=== PATIENT | female | born 1985 | race Caucasian/White ===

== ENCOUNTER 2017-07-15 17:09 | Emergency (ER) | payer SELFPAY ==
[2017-07-15 18:56] LABS: Basophils % (Auto) 0.6 % (0.0-1.8); Eosinophils % (Auto) 0.9 % (0.0-4.3); Hematocrit 40.2 % (30.3-42.9); Hemoglobin 13.7 gm/dl (10.1-14.3); Mean Corpuscular HGB Conc 34 % (30-34); Mean Corpuscular Hemoglobin 31 pg (28-32); Mean Corpuscular Volume 92 fl (79-97); Platelet Count 179 K/mm3 (140-440); Red Blood Count 4.38 M/mm3 (3.65-5.03); Red Cell Distribution Width 13.8 % (13.2-15.2); White Blood Count 7.6 K/mm3 (4.5-11.0)
[2017-07-15 19:04] LABS: Bilirubin,Urine NEG (Negative); Blood,Urine NEG (Negative); Ketones,Urine NEG (Negative); Leukocyte Esterase,Urine TR (Negative); Mucus,Urine FEW /HPF; Nitrite,Urine NEG (Negative); Protein,Urine <15 mg/dL mg/dL (Negative); Urobilinogen,Urine < 2.0 mg/dL (<2.0)
[2017-07-15 19:28] LABS: Alanine Aminotransferase 12 units/L (7-56); Albumin 4.1 g/dL (3.9-5); Albumin/Globulin Ratio 1.6 %; Alkaline Phosphatase 60 units/L (35-129); Anion Gap 18 mmol/L; BUN/Creatinine Ratio 13.33; Blood Urea Nitrogen 8 mg/dL (7-17); Calcium 9.5 mg/dL (8.4-10.2); Carbon Dioxide 24 mmol/L (22-30); Chloride 102.4 mmol/L (98-107); Glucose 77 mg/dL (65-100); Lipase 45 units/L (13-60); Potassium 3.9 mmol/L (3.6-5.0); Sodium 140 mmol/L (137-145); Total Protein 6.7 g/dL (6.3-8.2)
--- NOTE | 2017-07-16 01:30 | Emergency Department Report ---
ED Abdominal Pain HPI - General Chief Complaint: Abdominal Pain Stated Complaint: PREG WKS ?/PAIN Time Seen by Provider: 07/16/17 01:21 Source: patient Mode of arrival: Ambulatory Limitations: No Limitations - History of Present Illness Initial Comments: 32 years old female presented today with lower abdominal pain as being on for a few days patient thing that she is she stated that she did have a home test that was positive. She is 7 para 4. Denied any nausea or vomiting or urinary symptoms no fever. Patient stated her pain is resolved now MD Complaint: abdominal pain -: Gradual Location: suprapubic Radiation: none Migration to: no migration - Related Data Previous Rx's Medication Instructions Recorded Last Taken Type Hyoscyamine Subl [Levsin Sl 0.125 0.125 mg PO Q6H PRN #20 tablet 11/18/13 Unknown Rx TAB] Ranitidine HCl [Ranitidine 150mg 150 mg PO Q12H #30 capsule 11/18/13 Unknown Rx Cap] Ciprofloxacin HCl [Cipro] 500 mg PO Q12H #14 tab 01/03/15 Unknown Rx HYDROcodone/APAP 5-325 [[place] 1 each PO Q6HR PRN #8 tablet 01/03/15 Unknown Rx 5-325 mg TAB] Ondansetron [Zofran Odt] 4 mg PO Q6H PRN #8 tab.rapdis 01/03/15 Unknown Rx Promethazine Dm [Phenergan Dm 5 ml PO Q6H PRN #120 ml 01/03/15 Unknown Rx 6.25/15 mg 5 ml] Fluticasone [Flonase] 1 spray NS QDAY #1 bottle 11/22/15 Unknown Rx Ibuprofen [Motrin] 800 mg PO Q8HR PRN #15 tablet 11/22/15 Unknown Rx predniSONE [Deltasone] 20 mg PO QDAY #5 tab 11/22/15 Unknown Rx Ondansetron [Zofran Odt] 4 mg PO Q8HR PRN #20 tab.rapdis 07/16/17 Unknown Rx Allergies Allergy/AdvReac Type Severity Reaction Status Date / Time No Known Allergies Allergy Verified 03/02/14 10:28 ED Review of Systems ROS: Stated complaint: PREG WKS ?/PAIN Other details as noted in HPI Comment: All other systems reviewed and negative Constitutional: denies: chills, fever Respiratory: denies: cough, shortness of breath Cardiovascular: denies: chest pain Gastrointestinal: abdominal pain. denies: nausea, vomiting, diarrhea, hematemesis Genitourinary: denies: dysuria, frequency, hematuria, discharge Skin: denies: change in color Neurological: denies: headache, weakness, numbness ED Past Medical Hx - Past Medical History Previous Medical History?: Yes Hx Hypertension: Yes (PIH) Additional medical history: gallstone - Surgical History Past Surgical History?: Yes Hx Cholecystectomy: Yes - Social History Smoking Status: Never Smoker Substance Use Type: None - Medications Home Medications: Home Medications Medication Instructions Recorded Confirmed Last Taken Type Hyoscyamine Subl [Levsin Sl 0.125 0.125 mg PO Q6H PRN #20 tablet 11/18/13 Unknown Rx TAB] Ranitidine HCl [Ranitidine 150mg 150 mg PO Q12H #30 capsule 11/18/13 Unknown Rx Cap] Ciprofloxacin HCl [Cipro] 500 mg PO Q12H #14 tab 01/03/15 Unknown Rx HYDROcodone/APAP 5-325 [[place] 1 each PO Q6HR PRN #8 tablet 01/03/15 Unknown Rx 5-325 mg TAB] Ondansetron [Zofran Odt] 4 mg PO Q6H PRN #8 tab.rapdis 01/03/15 Unknown Rx Promethazine Dm [Phenergan Dm 5 ml PO Q6H PRN #120 ml 01/03/15 Unknown Rx 6.25/15 mg 5 ml] Fluticasone [Flonase] 1 spray NS QDAY #1 bottle 11/22/15 Unknown Rx Ibuprofen [Motrin] 800 mg PO Q8HR PRN #15 tablet 11/22/15 Unknown Rx predniSONE [Deltasone] 20 mg PO QDAY #5 tab 11/22/15 Unknown Rx Ondansetron [Zofran Odt] 4 mg PO Q8HR PRN #20 tab.rapdis 07/16/17 Unknown Rx ED Physical Exam - General Limitations: No Limitations General appearance: alert - Head Head exam: Present: normocephalic - Eye Eye exam: Present: normal appearance Pupils: Present: normal accommodation - ENT ENT exam: Present: normal exam - Respiratory Respiratory exam: Present: normal lung sounds bilaterally. Absent: wheezes, rales, rhonchi - Cardiovascular Cardiovascular Exam: Present: regular rate, normal rhythm, normal heart sounds - GI/Abdominal GI/Abdominal exam: Present: soft, normal bowel sounds. Absent: distended, tenderness, guarding, rebound, rigid, diminished bowel sounds, hyperactive bowel sounds, hypoactive bowel sounds, organomegaly, mass, bruit, pulsatile mass , hernia - Back Exam Back exam: Present: normal inspection. Absent: CVA tenderness (R), CVA tenderness (L) - Neurological Exam Neurological exam: Present: alert, oriented X3, CN II-XII intact - Skin Skin exam: Present: warm, normal color ED Course Vital Signs 07/15/17 07/16/17 18:23 00:33 Temperature 97.5 F L Pulse Rate 77 73 Respiratory 18 16 Rate Blood Pressure 150/95 Blood Pressure 126/74 [Left] O2 Sat by Pulse 99 100 Oximetry ED Medical Decision Making - Lab Data Result diagrams: 07/15/17 18:29 07/15/17 18:29 Critical care attestation.: If time is entered above; I have spent that time in minutes in the direct care of this critically ill patient, excluding procedure time. ED Disposition Clinical Impression: Abdominal pain, Abdominal pain affecting Disposition: DC-01 TO HOME OR SELFCARE Is pt being admited?: No Condition: Stable Instructions: (ED), Abdominal Pain (ED) Prescriptions: Ondansetron [Zofran Odt] 4 mg PO Q8HR PRN #20 tab.rapdis PRN Reason: Nausea And Vomiting Referrals: PRIMARY CARE,MD [Primary Care Provider] - 3-5 Days
[2017-07-16] MEDS ORDERED: ZOFRAN ODT PO ONE (04:00)
[2017-07-16] MEDS ORDERED: ZOFRAN PO ONE (04:00)
[2017-07-16] MEDS ORDERED: ZOFRAN ODT ONE (04:07)
--- NOTE | 2017-07-16 05:47 | Ultrasound Report ---
FINAL REPORT EXAM: US OB \T\lt; = 14 WEEKS FETUS HISTORY: Pelvic pain. patient. TECHNIQUE: Directed transabdominal ultrasound examination of the pelvis was performed. No prior studies are available for comparison. FINDINGS: Note that the patient refused transvaginal imaging. The patient reports her last menstrual period 06/05/2017, corresponding to current gestational age of 5 weeks, 6 days. The uterus is anteverted, and measures 6.9 x 6.6 x 9.5 cm. There is a single intrauterine gestation, with visualization of the gestational sac, yolk sac, and pole. The crown-rump length measures 5.4 mm, corresponding to gestational age of 6 weeks, 2 days. cardiac activity is identified, with a heart rate of 122 beats per minute. The right ovary measures 2.9 x 2.8 x 3.8 cm, and contains a 2.2 cm rounded hypoechoic lesion, which demonstrates central 0.8 cm cystic component. This is nonspecific but probably represents corpus luteum. The left ovary measures 3.3 x 2.0 x 3.1 cm, and contains a 1.6 cm cyst. No other adnexal mass is seen. There is no significant pelvic free fluid. IMPRESSION: 1. Single live intrauterine , with gestational age of 6 weeks, 2 days, as estimated by crown-rump length. 2. 2.2 cm probable corpus luteum in the right ovary.
[2017-07-16 07:21] VITALS: BP 116/78
== END 2017-07-16 06:05 | disposition home or self-care (01) ==
LOC: ED 17:09
DX: O26.899 Other specified pregnancy related conditions, unspecified trimester (principal); R10.30 Lower abdominal pain, unspecified; I10 Essential (primary) hypertension; Z3A.00 Weeks of gestation of pregnancy not specified
CPT/HCPCS: 36415; 76801; 80053; 81001; 81025; 83690; 84702; 85025; 99284; Q0162

== ENCOUNTER 2017-09-05 06:51 | Emergency (ER) | payer MEDICAID, OTHER ==
[2017-09-05 09:18] LABS: Basophils % (Auto) 0.8 % (0.0-1.8); Eosinophils % (Auto) 1.3 % (0.0-4.3); Hematocrit 37.5 % (30.3-42.9); Hemoglobin 12.4 gm/dl (10.1-14.3); Mean Corpuscular HGB Conc 33 % (30-34); Mean Corpuscular Hemoglobin 31 pg (28-32); Mean Corpuscular Volume 92 fl (79-97); Platelet Count 211 K/mm3 (140-440); Red Blood Count 4.07 M/mm3 (3.65-5.03); Red Cell Distribution Width 13.2 % (13.2-15.2); White Blood Count 6.6 K/mm3 (4.5-11.0)
[2017-09-05 09:21] LABS: Anion Gap 14 mmol/L; BUN/Creatinine Ratio 18; Blood Urea Nitrogen 9 mg/dL (7-17); Calcium 8.8 mg/dL (8.4-10.2); Carbon Dioxide 28 mmol/L (22-30); Chloride 100.4 mmol/L (98-107); Glucose 108 mg/dL (65-100); Potassium 3.6 mmol/L (3.6-5.0); Sodium 139 mmol/L (137-145)
[2017-09-05 09:50] LABS: Urine Drugs of Abuse Note Disclamer
[2017-09-05 10:02] LABS: Bacteria,Urine 2+ /HPF (Negative); Bilirubin,Urine NEG (Negative); Blood,Urine SM (Negative); Ketones,Urine 20 mg/dL (Negative); Leukocyte Esterase,Urine TR (Negative); Mucus,Urine 3+ /HPF; Nitrite,Urine NEG (Negative); Urobilinogen,Urine < 2.0 mg/dL (<2.0)
[2017-09-06] MEDS ORDERED: RisperDAL PO ONE (01:55)
--- NOTE | 2017-09-06 05:22 | Emergency Department Report ---
ED General Adult HPI - General Chief complaint: Psych Stated complaint: MEDICAL CLEAR. Time Seen by Provider: 09/06/17 01:18 Source: patient, police Mode of arrival: Ambulatory Limitations: No Limitations - History of Present Illness Initial comments: Patient is a 32-year-old female past medical history of schizophrenia who presents with hearing voices. Patient states that she hasn't been able to get her medications for her schizophrenia. Patient states that her voices are getting worse and they're making her incredibly anxious. Patient denies having any suicidal or homicidal ideation. Not taking her medications make the voices worse and taking her medication makes it at her. Patient denies being any pain. Patient takes multiple recreational drugs. Severity scale (0 -10): 0 - Related Data Previous Rx's Medication Instructions Recorded Last Taken Type Hyoscyamine Subl [Levsin Sl 0.125 0.125 mg PO Q6H PRN #20 tablet 11/18/13 Unknown Rx TAB] Ranitidine HCl [Ranitidine 150mg 150 mg PO Q12H #30 capsule 11/18/13 Unknown Rx Cap] Ciprofloxacin HCl [Cipro] 500 mg PO Q12H #14 tab 01/03/15 Unknown Rx HYDROcodone/APAP 5-325 [[place] 1 each PO Q6HR PRN #8 tablet 01/03/15 Unknown Rx 5-325 mg TAB] Ondansetron [Zofran Odt] 4 mg PO Q6H PRN #8 tab.rapdis 01/03/15 Unknown Rx Promethazine Dm [Phenergan Dm 5 ml PO Q6H PRN #120 ml 01/03/15 Unknown Rx 6.25/15 mg 5 ml] Fluticasone [Flonase] 1 spray NS QDAY #1 bottle 11/22/15 Unknown Rx Ibuprofen [Motrin] 800 mg PO Q8HR PRN #15 tablet 11/22/15 Unknown Rx predniSONE [Deltasone] 20 mg PO QDAY #5 tab 11/22/15 Unknown Rx Ondansetron [Zofran Odt] 4 mg PO Q8HR PRN #20 tab.rapdis 07/16/17 Unknown Rx Allergies Allergy/AdvReac Type Severity Reaction Status Date / Time No Known Allergies Allergy Verified 03/02/14 10:28 ED Review of Systems ROS: Stated complaint: MEDICAL CLEAR. Other details as noted in HPI Constitutional: denies: chills, fever Eyes: denies: eye pain, eye discharge, vision change ENT: denies: ear pain, throat pain Respiratory: denies: cough, shortness of breath, wheezing Cardiovascular: denies: chest pain, palpitations Endocrine: no symptoms reported Gastrointestinal: denies: abdominal pain, nausea, diarrhea Genitourinary: denies: urgency, dysuria, discharge Musculoskeletal: denies: back pain, joint swelling, arthralgia Skin: denies: rash, lesions Neurological: denies: headache, weakness, paresthesias Psychiatric: as per HPI, anxiety, auditory hallucinations. denies: depression Hematological/Lymphatic: denies: easy bleeding, easy bruising ED Past Medical Hx - Past Medical History Previous Medical History?: Yes Hx Hypertension: Yes (PIH) Additional medical history: gallstone - Surgical History Past Surgical History?: Yes Hx Cholecystectomy: Yes - Social History Smoking Status: Current Every Day Smoker Substance Use Type: Alcohol, Cocaine, Heroin, Marijuana, Prescribed, Tranquilizers, Methamphetamines - Medications Home Medications: Home Medications Medication Instructions Recorded Confirmed Last Taken Type Hyoscyamine Subl [Levsin Sl 0.125 0.125 mg PO Q6H PRN #20 tablet 11/18/13 Unknown Rx TAB] Ranitidine HCl [Ranitidine 150mg 150 mg PO Q12H #30 capsule 11/18/13 Unknown Rx Cap] Ciprofloxacin HCl [Cipro] 500 mg PO Q12H #14 tab 01/03/15 Unknown Rx HYDROcodone/APAP 5-325 [[place] 1 each PO Q6HR PRN #8 tablet 01/03/15 Unknown Rx 5-325 mg TAB] Ondansetron [Zofran Odt] 4 mg PO Q6H PRN #8 tab.rapdis 01/03/15 Unknown Rx Promethazine Dm [Phenergan Dm 5 ml PO Q6H PRN #120 ml 01/03/15 Unknown Rx 6.25/15 mg 5 ml] Fluticasone [Flonase] 1 spray NS QDAY #1 bottle 11/22/15 Unknown Rx Ibuprofen [Motrin] 800 mg PO Q8HR PRN #15 tablet 11/22/15 Unknown Rx predniSONE [Deltasone] 20 mg PO QDAY #5 tab 11/22/15 Unknown Rx Ondansetron [Zofran Odt] 4 mg PO Q8HR PRN #20 tab.rapdis 07/16/17 Unknown Rx ED Physical Exam - General Limitations: No Limitations General appearance: alert, in no apparent distress - Head Head exam: Present: atraumatic, normocephalic - Eye Eye exam: Present: normal appearance - ENT ENT exam: Present: mucous membranes moist - Neck Neck exam: Present: normal inspection - Respiratory Respiratory exam: Present: normal lung sounds bilaterally. Absent: respiratory distress - Cardiovascular Cardiovascular Exam: Present: regular rate, normal rhythm. Absent: systolic murmur, diastolic murmur, rubs, gallop - GI/Abdominal GI/Abdominal exam: Present: soft, normal bowel sounds - Extremities Exam Extremities exam: Present: normal inspection - Back Exam Back exam: Present: normal inspection - Neurological Exam Neurological exam: Present: alert, oriented X3 - Psychiatric Psychiatric exam: Present: anxious, other (auditory hallucinations ) - Skin Skin exam: Present: warm, dry, intact, normal color. Absent: rash ED Course Vital Signs 09/05/17 09/05/17 09/05/17 08:41 10:59 18:21 Temperature 97.7 F 97.8 F 97.7 F Pulse Rate 83 71 80 Respiratory 18 18 18 Rate Blood Pressure 121/78 123/74 128/93 Blood Pressure [Left] O2 Sat by Pulse 100 100 100 Oximetry 09/05/17 20:00 Temperature 98 F Pulse Rate 79 Respiratory 18 Rate Blood Pressure Blood Pressure 120/80 [Left] O2 Sat by Pulse 100 Oximetry ED Medical Decision Making - Lab Data Result diagrams: 09/05/17 08:51 09/05/17 08:51 Lab Results 09/05/17 09/05/17 09/05/17 Range/Units 08:51 08:51 08:51 WBC 6.6 (4.5-11.0) K/mm3 RBC 4.07 (3.65-5.03) M/mm3 Hgb 12.4 (10.1-14.3) gm/dl Hct 37.5 (30.3-42.9) % MCV 92 (79-97) fl MCH 31 (28-32) pg MCHC 33 (30-34) % RDW 13.2 (13.2-15.2) % Plt Count 211 (140-440) K/mm3 Lymph % (Auto) 26.6 (13.4-35.0) % [place] % (Auto) 7.8 H (0.0-7.3) % Eos % (Auto) 1.3 (0.0-4.3) % Baso % (Auto) 0.8 (0.0-1.8) % Lymph # 1.7 (1.2-5.4) K/mm3 [place] # 0.5 (0.0-0.8) K/mm3 Eos # 0.1 (0.0-0.4) K/mm3 Baso # 0.1 (0.0-0.1) K/mm3 Seg Neutrophils % 63.5 (40.0-70.0) % Seg Neutrophils # 4.2 (1.8-7.7) K/mm3 Sodium 139 (137-145) mmol/L Potassium 3.6 (3.6-5.0) mmol/L Chloride 100.4 (98-107) mmol/L Carbon Dioxide 28 (22-30) mmol/L Anion Gap 14 mmol/L BUN 9 (7-17) mg/dL Creatinine 0.5 L (0.7-1.2) mg/dL Estimated GFR > 60 ml/min BUN/Creatinine Ratio 18 % Glucose 108 H (65-100) mg/dL Calcium 8.8 (8.4-10.2) mg/dL Urine Color (Yellow) Urine Turbidity (Clear) Urine pH (5.0-7.0) Ur Specific [place] (1.003-1.030) Urine Protein (Negative) mg/dL Urine Glucose (UA) (Negative) mg/dL Urine Ketones (Negative) mg/dL Urine Blood (Negative) Urine Nitrite (Negative) Urine Bilirubin (Negative) Urine Urobilinogen (<2.0) mg/dL Ur Leukocyte Esterase (Negative) Urine WBC (Auto) (0.0-6.0) /HPF Urine RBC (Auto) (0.0-6.0) /HPF U Epithel Cells (Auto) (0-13.0) /HPF Urine Bacteria (Auto) (Negative) /HPF Urine Mucus /HPF Urine HCG, Qual (Negative) Urine Opiates Screen Urine Methadone Screen Ur Barbiturates Screen Ur Phencyclidine Scrn Ur Amphetamines Screen U Benzodiazepines Scrn Urine Cocaine Screen U Marijuana (THC) Screen Drugs of Abuse Note Plasma/Serum Alcohol < 0.01 (0-0.07) gm% 09/05/17 09/05/17 Range/Units 09:30 09:30 WBC (4.5-11.0) K/mm3 RBC (3.65-5.03) M/mm3 Hgb (10.1-14.3) gm/dl Hct (30.3-42.9) % MCV (79-97) fl MCH (28-32) pg MCHC (30-34) % RDW (13.2-15.2) % Plt Count (140-440) K/mm3 Lymph % (Auto) (13.4-35.0) % [place] % (Auto) (0.0-7.3) % Eos % (Auto) (0.0-4.3) % Baso % (Auto) (0.0-1.8) % Lymph # (1.2-5.4) K/mm3 [place] # (0.0-0.8) K/mm3 Eos # (0.0-0.4) K/mm3 Baso # (0.0-0.1) K/mm3 Seg Neutrophils % (40.0-70.0) % Seg Neutrophils # (1.8-7.7) K/mm3 Sodium (137-145) mmol/L Potassium (3.6-5.0) mmol/L Chloride (98-107) mmol/L Carbon Dioxide (22-30) mmol/L Anion Gap mmol/L BUN (7-17) mg/dL Creatinine (0.7-1.2) mg/dL Estimated GFR ml/min BUN/Creatinine Ratio % Glucose (65-100) mg/dL Calcium (8.4-10.2) mg/dL Urine Color [place] (Yellow) Urine Turbidity Clear (Clear) Urine pH 5.0 (5.0-7.0) Ur Specific [place] 1.026 (1.003-1.030) Urine Protein 30 mg/dl (Negative) mg/dL Urine Glucose (UA) Neg (Negative) mg/dL Urine Ketones 20 (Negative) mg/dL Urine Blood Sm (Negative) Urine Nitrite Neg (Negative) Urine Bilirubin Neg (Negative) Urine Urobilinogen < 2.0 (<2.0) mg/dL Ur Leukocyte Esterase Tr (Negative) Urine WBC (Auto) 8.0 H (0.0-6.0) /HPF Urine RBC (Auto) 5.0 (0.0-6.0) /HPF U Epithel Cells (Auto) 2.0 (0-13.0) /HPF Urine Bacteria (Auto) 2+ (Negative) /HPF Urine Mucus 3+ /HPF Urine HCG, Qual Negative (Negative) Urine Opiates Screen Presumptive negative Urine Methadone Screen Presumptive negative Ur Barbiturates Screen Presumptive negative Ur Phencyclidine Scrn Presumptive negative Ur Amphetamines Screen Presumptive negative U Benzodiazepines Scrn Presumptive negative Urine Cocaine Screen Presumptive negative U Marijuana (THC) Screen Presumptive negative Drugs of Abuse Note Disclamer Plasma/Serum Alcohol (0-0.07) gm% - Medical Decision Making Chief medical diagnosis: Psychosis Differential medical diagnosis: Substance induced mood disorder, bipolar disorder, electrolyte abnormality CBC, CMP, urinalysis, urine drug screen, salicylate, acetaminophen level, mental health evaluation Due to patient having psychotic symptoms and hearing voices how all signed 1013 on patient and have patient be evaluated by psychiatrist tomorrow. Patient has been medically cleared Critical care attestation.: If time is entered above; I have spent that time in minutes in the direct care of this critically ill patient, excluding procedure time. ED Disposition Clinical Impression: Psychosis Qualifiers: Psychosis type: unspecified psychosis type Qualified Code(s): F29 - Unspecified psychosis not due to a substance or known physiological condition Disposition: DC/TX-65 PSY HOSP/PSY UNIT Is pt being admited?: No Does the pt Need Aspirin: No Condition: Stable Referrals: PRIMARY CARE, [Primary Care Provider] - 3-5 Days
--- NOTE | 2017-09-06 16:27 | Consultation ---
History of Present Illness - Reason for Consult Consult date: 09/06/17 Reason for consult: psychiatric evaluation - Chief Complaint Chief complaint: "I used and fell down the stairs." 32 year old female brought in by Police. Per report Pt was found in the corner of a grocery store behaving bizarrely. Pt has a history of Schizophrenia and admits noncompliance with prescribed Risperidone. She reports previously taking 3mg hs. She reported regular use of recreational drugs to attending MD but is negative for all drugs of abuse upon evaluation. She expresses bizarre and hyper jain delusions during assessment. She is tangential and has pressured speech. She told the [employer] foreman that she became sick and vomited "when I became born in [facility]". Unable to obtain additional information due to psychosis. Medications and Allergies Allergies Allergy/AdvReac Type Severity Reaction Status Date / Time No Known Allergies Allergy Verified 03/02/14 10:28 Home Medications Medication Instructions Recorded Confirmed Last Taken Type Hyoscyamine Subl [Levsin Sl 0.125 0.125 mg PO Q6H PRN #20 tablet 11/18/13 Unknown Rx TAB] Ranitidine HCl [Ranitidine 150mg 150 mg PO Q12H #30 capsule 11/18/13 Unknown Rx Cap] Ciprofloxacin HCl [Cipro] 500 mg PO Q12H #14 tab 01/03/15 Unknown Rx HYDROcodone/APAP 5-325 [[place] 1 each PO Q6HR PRN #8 tablet 01/03/15 Unknown Rx 5-325 mg TAB] Ondansetron [Zofran Odt] 4 mg PO Q6H PRN #8 tab.rapdis 01/03/15 Unknown Rx Promethazine Dm [Phenergan Dm 5 ml PO Q6H PRN #120 ml 01/03/15 Unknown Rx 6.25/15 mg 5 ml] Fluticasone [Flonase] 1 spray NS QDAY #1 bottle 11/22/15 Unknown Rx Ibuprofen [Motrin] 800 mg PO Q8HR PRN #15 tablet 11/22/15 Unknown Rx predniSONE [Deltasone] 20 mg PO QDAY #5 tab 11/22/15 Unknown Rx Ondansetron [Zofran Odt] 4 mg PO Q8HR PRN #20 tab.rapdis 07/16/17 Unknown Rx Past psychiatric history - Past Medical History Past Medical History: other (BELLO) - past Psychiatric treatment and history Psych: Schizophrenia - Social History Social history: other (BELLO) Mental Status Exam - Vital signs Last Vital Signs Temp 97.8 F 09/06/17 10:41 Pulse 82 09/06/17 10:41 Resp 20 09/06/17 10:41 BP 113/74 09/06/17 10:41 Pulse Ox 98 09/06/17 10:41 - Exam Orientation: place, person Affect: anxious Mood: congruent with affect Thought content: delusions, taoist, other (bizarre) Thought Process: Disorganized Perceptions: other (BELLO) Speech: pressured Concentration: distractible Motor activity: restless Level of consciousness: alert Interaction: cooperative (attempts to be but requires redirection, which was mostly unsuccessful) Results Result Diagrams: 09/05/17 08:51 09/05/17 08:51 All other labs normal. Assessment and Plan Assessment and plan: Impression: Psychosis no signs of withdrawal identified. reports of polysubstance use may be delusional schizophrenia by report Recommendation: 1013 and transfer to inpatient psychiatric facility for stabilization Start risperdal 2mg hs. She has not been on it in 7 months.
[2017-09-06] MEDS ORDERED: RisperDAL PO SCH (22:00)
[2017-09-07 01:13] VITALS: BP 102/82
== END 2017-09-07 01:06 ==
LOC: ED 06:51 → EEVIPCON 06:51 → ED 09-07 01:06
DX: F20.9 Schizophrenia, unspecified (principal); I10 Essential (primary) hypertension; F17.210 Nicotine dependence, cigarettes, uncomplicated; F14.10 Cocaine abuse, uncomplicated; F12.10 Cannabis abuse, uncomplicated; F11.10 Opioid abuse, uncomplicated; F15.10 Other stimulant abuse, uncomplicated
CPT/HCPCS: 36415; 80048; 80307; 81001; 81025; 85025; 99285; G0480; 80320

== ENCOUNTER 2020-01-11 09:32 | Emergency (ER) | payer MEDICARE ==
--- NOTE | 2020-01-11 10:07 | Emergency Department Report ---
ED Psych HPI - General Stated Complaint: AMS Time Seen by Provider: 01/11/20 09:51 Source: patient, EMS Mode of arrival: Ambulatory Limitations: No Limitations - History of Present Illness Initial Comments: CC: "I just needed to rest." HPI: Mrs. Whitt is a 34 yo female with hx of schizoaffective disorder who was brought per EMS for altered mental status from a local [facility]. A third democrat called EMS for medical assistance. Patient appeared altered. She did not know the year. She informed treatment nurse that she is hearing voices. She is currently homeless. She has an empty bottle of Depakote in her purse. She does not know the reason why she was prescribed this medication. She has stopped taking this medication because a physician told her not to take the medication any longer. Denies pain. Received naloxone per EMS. Denies drug use. She says that she has two sisters. Diagnosed with schizoaffective disorder age 12. Mrs. Whitt Moved to [place] 6 years ago. Had recently lived at personal long term for the past 8 months but evicted because she has not been taking her medications. According to sisters, she has been erratic and disoriented. She does not seem safe to be on the streets. She has been aggressive. She does attend to her personal hygiene. She receives disability checks. Sisters unable to continue provide Mrs. Whitt detention due to concern for their personal safety. Sisters Silvia Marla According to the psychiatric consultation performed here in 2017, patient had previously taken the medication Risperdal. Complaint: other ("Hearing voices") -: unknown Associated Psychiatric Symptoms: auditory hallucinations History of same: Yes Quality: constant Improves With: none Worsens With: none Context: not taking psychiatric Associated Symptoms: denies other symptoms Treatments Prior to Arrival: other (Naloxone per EMS) - Related Data Home Medications Medication Instructions Recorded Confirmed Last Taken Divalproex [DepaKOTE ] 1,000 mg PO QID 01/11/20 01/11/20 Unknown Previous Rx's Medication Instructions Recorded Last Taken Type raNITIdine HCL [Ranitidine 150mg 150 mg PO Q12H #30 capsule 11/18/13 Unknown Rx Cap] Ibuprofen [Motrin] 800 mg PO Q8HR PRN #15 tablet 11/22/15 Unknown Rx Allergies Allergy/AdvReac Type Severity Reaction Status Date / Time No Known Allergies Allergy Verified 03/02/14 10:28 ED Review of Systems ROS: Stated complaint: AMS Other details as noted in HPI Comment: All other systems reviewed and negative Constitutional: denies: fever, malaise Respiratory: denies: cough Cardiovascular: denies: chest pain Psychiatric: suicidal thoughts ED Past Medical Hx - Past Medical History Previous Medical History?: Yes Hx Hypertension: Yes (PIH) Additional medical history: gallstone - Surgical History Hx Cholecystectomy: Yes - Social History Smoking Status: Current Every Day Smoker Substance Use Type: Alcohol, Cocaine, Heroin, Marijuana, Prescribed, Tranquilizers, Methamphetamines - Medications Home Medications: Home Medications Medication Instructions Recorded Confirmed Last Taken Type raNITIdine HCL [Ranitidine 150mg 150 mg PO Q12H #30 capsule 11/18/13 01/11/20 Unknown Rx Cap] Ibuprofen [Motrin] 800 mg PO Q8HR PRN #15 tablet 11/22/15 01/11/[address] [DepaKOTE DR] 1,000 mg PO QID 01/11/20 01/11/20 Unknown History ED Physical Exam - General Limitations: No Limitations General appearance: alert, in no apparent distress - Head Head exam: Present: atraumatic, normocephalic - Eye Eye exam: Present: normal appearance - ENT ENT exam: Present: mucous membranes moist - Neck Neck exam: Present: normal inspection, full ROM - Respiratory Respiratory exam: Present: normal lung sounds bilaterally. Absent: respiratory distress, wheezes, rales, rhonchi - Cardiovascular Cardiovascular Exam: Present: regular rate, normal rhythm, normal heart sounds. Absent: systolic murmur, diastolic murmur, rubs, gallop - GI/Abdominal GI/Abdominal exam: Present: soft, normal bowel sounds. Absent: distended, tenderness, guarding, rebound - Extremities Exam Extremities exam: Present: normal inspection - Back Exam Back exam: Present: normal inspection - Neurological Exam Neurological exam: Present: alert, oriented X3 - Psychiatric Psychiatric exam: Present: normal mood, flat affect - Skin Skin exam: Present: warm, dry, intact, normal color. Absent: rash ED Course Vital Signs 01/11/20 01/11/20 01/11/20 09:48 09:56 10:01 Temperature 98.6 F Pulse Rate 72 78 Respiratory 18 20 Rate Blood Pressure 115/72 115/62 115/72 Blood Pressure [Left] O2 Sat by Pulse 100 97 Oximetry 01/11/20 01/11/20 01/11/20 10:15 10:31 10:45 Temperature Pulse Rate 79 87 69 Respiratory 22 17 22 Rate Blood Pressure 112/70 106/53 129/74 Blood Pressure [Left] O2 Sat by Pulse 100 99 98 Oximetry 01/11/20 01/11/20 01/11/20 11:01 11:15 11:31 Temperature Pulse Rate 72 74 74 Respiratory 20 20 21 Rate Blood Pressure 126/64 127/66 133/81 Blood Pressure [Left] O2 Sat by Pulse 99 100 99 Oximetry 01/11/20 01/11/20 01/11/20 11:45 12:01 12:15 Temperature Pulse Rate 82 81 86 Respiratory 20 22 21 Rate Blood Pressure 125/73 127/69 126/71 Blood Pressure [Left] O2 Sat by Pulse 99 98 99 Oximetry 01/11/20 01/11/20 01/11/20 12:37 17:51 20:00 Temperature 98.2 F Pulse Rate 83 94 H Respiratory 20 18 20 Rate Blood Pressure Blood Pressure 125/77 124/79 [Left] O2 Sat by Pulse 98 94 98 Oximetry 01/11/20 20:19 Temperature 98.4 F Pulse Rate 78 Respiratory 20 Rate Blood Pressure Blood Pressure 101/50 [Left] O2 Sat by Pulse 98 Oximetry ED Medical Decision Making - Lab Data Result diagrams: 01/11/20 10:16 01/11/20 10:16 - Medical Decision Making Mrs. Whitt [facility] with altered mental status. Hx of schizoaffective disorder. According to sisters, she has put herself in dangerous situations due to acute psychosis. She has been disorganized, disoriented with aggressive, impulsive behavior. She has spent all her money without regard to personal care. 1013 involuntary hold instituted. Sister came to ED provided information. I also spoke with second sister per phone for collateral information. Patient is medically clear for psychiatric care. Valproic acid is nondetectable and serum studies. CBC chemistry serum toxicology all within normal limits. Patient transferred to [facility] according to nursing notes Critical care attestation.: If time is entered above; I have spent that time in minutes in the direct care of this critically ill patient, excluding procedure time. ED Disposition Clinical Impression: Acute psychosis, Schizoaffective disorder Disposition: DC/TX-65 PSY HOSP/PSY UNIT Is pt being admited?: No Does the pt Need Aspirin: No Condition: Stable Referrals: MARJAN MARTINEZ MD [Primary Care Provider] - 3-5 Days
[2020-01-11 10:52] LABS: Basophils # (Auto) 0.1 K/mm3 (0.0-0.1); Basophils % (Auto) 0.9 % (0.0-1.8); Eosinophils # (Auto) 0.1 K/mm3 (0.0-0.4); Eosinophils % (Auto) 0.7 % (0.0-4.3); Hematocrit 39.8 % (30.3-42.9); Hemoglobin 13.2 gm/dl (10.1-14.3); Lymphocytes # (Auto) 1.9 K/mm3 (1.2-5.4); Lymphocytes % (Auto) 26.9 % (13.4-35.0); Mean Corpuscular HGB Conc 33 % (30-34); Mean Corpuscular Volume 92 fl (79-97); Monocytes # (Auto) 0.6 K/mm3 (0.0-0.8); Monocytes % (Auto) 8.2 % (0.0-7.3); Platelet Count 195 K/mm3 (140-440); Red Blood Count 4.31 M/mm3 (3.65-5.03); Red Cell Distribution Width 13.1 % (13.2-15.2)
[2020-01-11 11:03] LABS: Alanine Aminotransferase 18 units/L (7-56); Albumin 3.9 g/dL (3.9-5); BUN/Creatinine Ratio 35; Blood Urea Nitrogen 21 mg/dL (7-17); Calcium 9.6 mg/dL (8.4-10.2); Hemolysis Index 18
[2020-01-11 20:15] LABS: Bilirubin,Urine NEG (Negative); Blood,Urine NEG (Negative); Color,Urine Yellow (Yellow); Hyaline Casts,Urine 1 /LPF; Mucus,Urine 1+ /HPF; Protein,Urine <15 mg/dL mg/dL (Negative); Urobilinogen,Urine < 2.0 mg/dL (<2.0)
[2020-01-11 20:20] VITALS: BP 101/50
[2020-01-11 20:22] LABS: Amphetamine Screen,Urine PRESUMPTIVE NEGATIVE; Benzodiazepines Screen,Urine PRESUMPTIVE NEGATIVE; Cannabinoid Screen,Urine PRESUMPTIVE NEGATIVE; Cocaine Screen,Urine PRESUMPTIVE NEGATIVE; Methadone Screen,Urine PRESUMPTIVE NEGATIVE; Opiate Screen,Urine PRESUMPTIVE NEGATIVE
== END 2020-01-11 20:42 ==
LOC: ED 09:32
DX: F25.9 Schizoaffective disorder, unspecified (principal); I10 Essential (primary) hypertension; F17.200 Nicotine dependence, unspecified, uncomplicated; F12.10 Cannabis abuse, uncomplicated; F14.10 Cocaine abuse, uncomplicated; Z79.899 Other long term (current) drug therapy
CPT/HCPCS: 36415; 80053; 80164; 80307; 80320; 81001; 85025; G0480

== ENCOUNTER 2020-07-08 14:06 | Emergency (ER) | payer MEDICARE ==
--- NOTE | 2020-07-08 14:36 | Emergency Department Report ---
ED General Adult HPI - General Chief complaint: Altered Mental Status Stated complaint: AMS Time Seen by Provider: 07/08/20 14:27 Source: EMS Mode of arrival: Stretcher Limitations: Altered Mental Status - History of Present Illness Initial comments: Patient is a 35-year-old female with no known past medical history at this time who is presenting with altered mental status. EMS found the patient lying on the side of the road. She was alert and oriented but stated that she had passed out. Per my interview the patient states that she did pass out. I asked her where she was on her way to and the patient's started having difficulty relating a clear story. Patient does exhibit some word salad type symptoms. At one point she stated that she was going to the address but the address was not a wedding ring. Patient also stated that she was born but passed over into [place]. Patient was awake and alert the entire time and seemed to understa nd what she was trying to say however it was not relating into meaningful language. There is no slurred speech present at the time. - Related Data Home Medications Medication Instructions Recorded Confirmed Last Taken Divalproex [Esequiel CAZARES] 1,000 mg PO QID 01/11/20 01/11/20 Unknown Previous Rx's Medication Instructions Recorded Last Taken Type raNITIdine HCL [Ranitidine 150mg 150 mg PO Q12H #30 capsule 11/18/13 Unknown Rx Cap] Ibuprofen [Motrin] 800 mg PO Q8HR PRN #15 tablet 11/22/15 Unknown Rx Allergies Allergy/AdvReac Type Severity Reaction Status Date / Time No Known Allergies Allergy Verified 03/02/14 10:28 ED Review of Systems ROS: Stated complaint: AMS Other details as noted in HPI Comment: All other systems reviewed and negative ED Past Medical Hx - Past Medical History Previous Medical History?: Yes Hx Hypertension: Yes (PIH) Additional medical history: gallstone - Surgical History Past Surgical History?: Yes Hx Cholecystectomy: Yes - Social History Smoking Status: Current Every Day Smoker - Medications Home Medications: Home Medications Medication Instructions Recorded Confirmed Last Taken Type raNITIdine HCL [Ranitidine 150mg 150 mg PO Q12H #30 capsule 11/18/13 01/11/20 Unknown Rx Cap] Ibuprofen [Motrin] 800 mg PO Q8HR PRN #15 tablet 11/22/15 01/11/20 Unknown Rx Divalproex [Esequiel CAZARES] 1,000 mg PO QID 01/11/20 01/11/20 Unknown History ED Physical Exam - General Limitations: Altered Mental Status General appearance: alert, in no apparent distress - Head Head exam: Present: atraumatic, normocephalic - Eye Eye exam: Present: normal appearance, PERRL, EOMI - ENT ENT exam: Present: normal orophraynx, mucous membranes moist - Neck Neck exam: Present: normal inspection - Respiratory Respiratory exam: Present: normal lung sounds bilaterally. Absent: respiratory distress, wheezes, rales, rhonchi - Cardiovascular Cardiovascular Exam: Present: regular rate, normal rhythm. Absent: systolic murmur, diastolic murmur, rubs, gallop - GI/Abdominal GI/Abdominal exam: Present: soft, normal bowel sounds. Absent: distended, tend erness, guarding, rebound, rigid - Extremities Exam Extremities exam: Present: normal inspection - Back Exam Back exam: Present: normal inspection - Neurological Exam Neurological exam: Present: alert, altered, CN II-XII intact. Absent: motor sensory deficit - Expanded Neurological Exam Expanded Neurological exam: Present: expressive aphasia (with word salad) Patient oriented to: Present: person, place. Absent: time Cerebellar function: Finger to Nose: Normal Motor strength exam: RUE: 5, LUE: 5, RLE: 5, LLE: 5 Best Eye Response (Graciela): (4) open spontaneously Best Motor Response ([place]): (6) obeys commands Best Verbal Response ([place]): (4) confused conversation Graciela Total: 14 - Psychiatric Psychiatric exam: Present: normal affect, normal mood - Skin Skin exam: Present: warm, dry, intact, normal color. Absent: rash ED Course Vital Signs 07/08/20 14:13 Temperature 98.9 F Pulse Rate 85 Respiratory 16 Rate Blood Pressure 133/86 O2 Sat by Pulse 99 Oximetry - Reevaluation(s) Reevaluation #1: 07/08/20 18:18 Patient is medically cleared for psychiatric evaluation at this time ED Medical Decision Making - Lab Data Result diagrams: 07/08/20 14:48 07/08/20 14:48 Lab Results 07/08/20 07/08/20 07/08/20 Range/Units 14:48 14:48 14:48 WBC 6.0 (4.5-11.0) K/mm3 RBC 4.29 (3.65-5.03) M/mm3 Hgb 13.5 (10.1-14.3) gm/dl Hct 39.9 (30.3-42.9) % MCV 93 (79-97) fl MCH 32 (28-32) pg MCHC 34 (30-34) % RDW 13.7 (13.2-15.2) % Plt Count 235 (140-440) K/mm3 Lymph % (Auto) 27.3 (13.4-35.0) % [place] % (Auto) 7.2 (0.0-7.3) % Eos % (Auto) 1.0 (0.0-4.3) % Baso % (Auto) 1.1 (0.0-1.8) % Lymph # 1.6 (1.2-5.4) K/mm3 [place] # 0.5 (0.0-0.8) K/mm3 Eos # 0.0 (0.0-0.4) K/mm3 Baso # 0.1 (0.0-0.1) K/mm3 Seg Neutrophils % 63.4 (40.0-70.0) % Seg Neutrophils # 3.8 (1.8-7.7) K/mm3 Sodium 137 (137-145) mmol/L Potassium 3.9 (3.6-5.0) mmol/L Chloride 105.0 (98-107) mmol/L Carbon Dioxide 19 L (22-30) mmol/L Anion Gap 17 mmol/L BUN 7 (7-17) mg/dL Creatinine 0.6 (0.6-1.2) mg/dL Estimated GFR > 60 ml/min BUN/Creatinine Ratio 12 % Glucose 102 H (65-100) mg/dL Calcium 9.0 (8.4-10.2) mg/dL Total Bilirubin 0.40 (0.1-1.2) mg/dL AST 12 (5-40) units/L ALT 10 (7-56) units/L Alkaline Phosphatase 74 (35-129) units/L Total Protein 6.8 (6.3-8.2) g/dL Albumin 4.0 (3.9-5) g/dL Albumin/Globulin Ratio 1.4 % Urine Color (Yellow) Urine Turbidity (Clear) Urine pH (5.0-7.0) Ur Specific [place] (1.003-1.030) Urine Protein (Negative) mg/dL Urine Glucose (UA) (Negative) mg/dL Urine Ketones (Negative) mg/dL Urine Blood (Negative) Urine Nitrite (Negative) Urine Bilirubin (Negative) Urine Urobilinogen (<2.0) mg/dL Ur Leukocyte Esterase (Negative) Urine WBC (Auto) (0.0-6.0) /HPF Urine RBC (Auto) (0.0-6.0) /HPF U Epithel Cells (Auto) (0-13.0) /HPF Urine Mucus /HPF Salicylates < 0.3 L (2.8-20.0) mg/dL Urine Opiates Screen Urine Methadone Screen Acetaminophen (10.0-30.0) ug/mL Ur Barbiturates Screen Ur Phencyclidine Scrn Ur Amphetamines Screen U Benzodiazepines Scrn Urine Cocaine Screen U Marijuana (THC) Screen Drugs of Abuse Note Plasma/Serum Alcohol (0-0.07) % 07/08/20 07/08/20 07/08/20 Range/Units 14:48 14:48 17:44 WBC (4.5-11.0) K/mm3 RBC (3.65-5.03) M/mm3 Hgb (10.1-14.3) gm/dl Hct (30.3-42.9) % MCV (79-97) fl MCH (28-32) pg MCHC (30-34) % RDW (13.2-15.2) % Plt Count (140-440) K/mm3 Lymph % (Auto) (13.4-35.0) % [place] % (Auto) (0.0-7.3) % Eos % (Auto) (0.0-4.3) % Baso % (Auto) (0.0-1.8) % Lymph # (1.2-5.4) K/mm3 [place] # (0.0-0.8) K/mm3 Eos # (0.0-0.4) K/mm3 Baso # (0.0-0.1) K/mm3 Seg Neutrophils % (40.0-70.0) % Seg Neutrophils # (1.8-7.7) K/mm3 Sodium (137-145) mmol/L Potassium (3.6-5.0) mmol/L Chloride (98-107) mmol/L Carbon Dioxide (22-30) mmol/L Anion Gap mmol/L BUN (7-17) mg/dL Creatinine (0.6-1.2) mg/dL Estimated GFR ml/min BUN/Creatinine Ratio % Glucose (65-100) mg/dL Calcium (8.4-10.2) mg/dL Total Bilirubin (0.1-1.2) mg/dL AST (5-40) units/L ALT (7-56) units/L Alkaline Phosphatase (35-129) units/L Total Protein (6.3-8.2) g/dL Albumin (3.9-5) g/dL Albumin/Globulin Ratio % Urine Color Straw (Yellow) Urine Turbidity Clear (Clear) Urine pH 6.0 (5.0-7.0) Ur Specific [place] 1.006 (1.003-1.030) Urine Protein <15 mg/dl (Negative) mg/dL Urine Glucose (UA) Neg (Negative) mg/dL Urine Ketones Neg (Negative) mg/dL Urine Blood Neg (Negative) Urine Nitrite Neg (Negative) Urine Bilirubin Neg (Negative) Urine Urobilinogen < 2.0 (<2.0) mg/dL Ur Leukocyte Esterase Tr (Negative) Urine WBC (Auto) 2.0 (0.0-6.0) /HPF Urine RBC (Auto) 1.0 (0.0-6.0) /HPF U Epithel Cells (Auto) < 1.0 (0-13.0) /HPF Urine Mucus Few /HPF Salicylates (2.8-20.0) mg/dL Urine Opiates Screen Urine Methadone Screen Acetaminophen 5.0 L (10.0-30.0) ug/mL Ur Barbiturates Screen Ur Phencyclidine Scrn Ur Amphetamines Screen U Benzodiazepines Scrn Urine Cocaine Screen U Marijuana (THC) Screen Drugs of Abuse Note Plasma/Serum Alcohol < 0.01 (0-0.07) % 07/08/20 Range/Units 17:44 WBC (4.5-11.0) K/mm3 RBC (3.65-5.03) M/mm3 Hgb (10.1-14.3) gm/dl Hct (30.3-42.9) % MCV (79-97) fl MCH (28-32) pg MCHC (30-34) % RDW (13.2-15.2) % Plt Count (140-440) K/mm3 Lymph % (Auto) (13.4-35.0) % [place] % (Auto) (0.0-7.3) % Eos % (Auto) (0.0-4.3) % Baso % (Auto) (0.0-1.8) % Lymph # (1.2-5.4) K/mm3 [place] # (0.0-0.8) K/mm3 Eos # (0.0-0.4) K/mm3 Baso # (0.0-0.1) K/mm3 Seg Neutrophils % (40.0-70.0) % Seg Neutrophils # (1.8-7.7) K/mm3 Sodium (137-145) mmol/L Potassium (3.6-5.0) mmol/L Chloride (98-107) mmol/L Carbon Dioxide (22-30) mmol/L Anion Gap mmol/L BUN (7-17) mg/dL Creatinine (0.6-1.2) mg/dL Estimated GFR ml/min BUN/Creatinine Ratio % Glucose (65-100) mg/dL Calcium (8.4-10.2) mg/dL Total Bilirubin (0.1-1.2) mg/dL AST (5-40) units/L ALT (7-56) units/L Alkaline Phosphatase (35-129) units/L Total Protein (6.3-8.2) g/dL Albumin (3.9-5) g/dL Albumin/Globulin Ratio % Urine Color (Yellow) Urine Turbidity (Clear) Urine pH (5.0-7.0) Ur Specific [place] (1.003-1.030) Urine Protein (Negative) mg/dL Urine Glucose (UA) (Negative) mg/dL Urine Ketones (Negative) mg/dL Urine Blood (Negative) Urine Nitrite (Negative) Urine Bilirubin (Negative) Urine Urobilinogen (<2.0) mg/dL Ur Leukocyte Esterase (Negative) Urine WBC (Auto) (0.0-6.0) /HPF Urine RBC (Auto) (0.0-6.0) /HPF U Epithel Cells (Auto) (0-13.0) /HPF Urine Mucus /HPF Salicylates (2.8-20.0) mg/dL Urine Opiates Screen Presumptive negative Urine Methadone Screen Presumptive negative Acetaminophen (10.0-30.0) ug/mL Ur Barbiturates Screen Presumptive negative Ur Phencyclidine Scrn Presumptive negative Ur Amphetamines Screen Presumptive negative U Benzodiazepines Scrn Presumptive negative Urine Cocaine Screen Presumptive negative U Marijuana (THC) Screen Presumptive negative Drugs of Abuse Note Disclamer Plasma/Serum Alcohol (0-0.07) % - Radiology Data [facility] [address] [place] [address] Cat Scan Report Signed Patient: JAHAIRA PARKER MR#: [id number] : 1985 Acct:[id number] Age/Sex: 35 / F ADM Date: 07/08/20 Loc: ED Attending Dr: Ordering Physician: LACIE PARKER MD Date of Service: 07/08/20 Procedure(s): CT head/brain wo con Accession Number(s): [id number] cc: LACIE PARKER MD CT HEAD WITHOUT CONTRAST INDICATION / CLINICAL INFORMATION: altered mental status. TECHNIQUE: All CT scans at this location are performed using CT dose reduction for ALARA by means of automated exposure control. COMPARISON: None. Head CT dated 11/22/2015 present in this patient's file is of a different patient. FINDINGS: HEMORRHAGE: No evidence of intracranial hemorrhage or extra-axial fluid collection. EXTRA-AXIAL SPACES: Cortical sulci, sylvian fissures and basilar cisterns have an unremarkable appearance. VENTRICULAR SYSTEM: The ventricular system is of normal size and configuration. CEREBRAL PARENCHYMA: No areas of abnormal brain parenchymal attenuation are identified. There is no indication of recent infarction. MIDLINE SHIFT OR HERNIATION: There is no mass effect. CEREBELLUM / BRAINSTEM: Brainstem and cerebellum have an unremarkable appearance . MIDLINE STRUCTURES:No abnormalities of the pituitary gland or pineal region are identified. INTRACRANIAL VESSELS:No abnormalities are identified on this noncontrast head CT. ORBITS: visualized portions of the orbits have an unremarkable appearance. SOFT TISSUES of HEAD: No significant abnormality. CALVARIUM: Evaluation of bone windows reveals no abnormalities. PARANASAL SINUSES / MASTOID AIR CELLS: Paranasal sinuses are free from inflammatory mucosal disease. Mastoid air cells are normally pneumatized. ADDITIONAL FINDINGS: None. IMPRESSION: 1. No significant abnormality on head CT without contrast. Signer Name: Kristian Palomares MD Signed: 07/08/2020 3:42 PM Workstation Name: [id number] Critical care attestation.: If time is entered above; I have spent that time in minutes in the direct care of this critically ill patient, excluding procedure time. ED Disposition Condition: Stable Referrals: PRIMARY CARE, [Primary Care Provider] - 3-5 Days
[2020-07-08 15:04] LABS: Basophils % (Auto) 1.1 % (0.0-1.8); Lymphocytes % (Auto) 27.3 % (13.4-35.0); Monocytes % (Auto) 7.2 % (0.0-7.3)
[2020-07-08 15:07] LABS: Basophils # (Auto) 0.1 K/mm3 (0.0-0.1); Hematocrit 39.9 % (30.3-42.9); Hemoglobin 13.5 gm/dl (10.1-14.3); Lymphocytes # (Auto) 1.6 K/mm3 (1.2-5.4); Mean Corpuscular HGB Conc 34 % (30-34); Mean Corpuscular Volume 93 fl (79-97); Monocytes # (Auto) 0.5 K/mm3 (0.0-0.8); Platelet Count 235 K/mm3 (140-440); Red Blood Count 4.29 M/mm3 (3.65-5.03); Red Cell Distribution Width 13.7 % (13.2-15.2)
[2020-07-08 15:26] LABS: Alanine Aminotransferase 10 units/L (7-56); Blood Urea Nitrogen 7 mg/dL (7-17); Hemolysis Index 12
[2020-07-08 15:30] LABS: BUN/Creatinine Ratio 12
--- NOTE | 2020-07-08 15:46 | Cat Scan Report ---
CT HEAD WITHOUT CONTRAST INDICATION / CLINICAL INFORMATION: altered mental status. TECHNIQUE: All CT scans at this location are performed using CT dose reduction for ALARA by means of automated e xposure control. COMPARISON: None. Head CT dated 11/22/2015 present in this patient's file is of a different patient. FINDINGS: HEMORRHAGE: No evidence of intracranial hemorrhage or extra-axial fluid collection. EXTRA-AXIAL SPACES: Cortical sulci, sylvian fissures and basilar cisterns have an unremarkable appear ance. VENTRICULAR SYSTEM: The ventricular system is of normal size and configuration. CEREBRAL PARENCHYMA: No areas of abnormal brain parenchymal attenuation are identified. There is no i ndication of recent infarction. MIDLINE SHIFT OR HERNIATION: There is no mass effect. CEREBELLUM / BRAINSTEM: Brainstem and cerebellum have an unremarkable appearance. MIDLINE STRUCTURES:No abnormalities of the pituitary gland or pineal region are identified. INTRACRANIAL VESSELS:No abnormalities are identified on this noncontrast head CT. ORBITS: visualized portions of the orbits have an unremarkable appearance. SOFT TISSUES of HEAD: No significant abnormality. CALVARIUM: Evaluation of bone windows reveals no abnormalities. PARANASAL SINUSES / MASTOID AIR CELLS: Paranasal sinuses are free from inflammatory mucosal disease. Mastoid air cells are normally pneumatized. ADDITIONAL FINDINGS: None. IMPRESSION: 1. No significant abnormality on head CT without contrast. Signer Name: Kristian Palomares MD Signed: 07/08/2020 3:42 PM Workstation Name: [id number]
[2020-07-08 18:02] LABS: Bilirubin,Urine NEG (Negative); Blood,Urine NEG (Negative); Color,Urine Straw (Yellow); Mucus,Urine FEW /HPF; Protein,Urine <15 mg/dL mg/dL (Negative); Urobilinogen,Urine < 2.0 mg/dL (<2.0)
[2020-07-08 18:09] LABS: Amphetamine Screen,Urine PRESUMPTIVE NEGATIVE; Benzodiazepines Screen,Urine PRESUMPTIVE NEGATIVE; Cannabinoid Screen,Urine PRESUMPTIVE NEGATIVE; Cocaine Screen,Urine PRESUMPTIVE NEGATIVE; Methadone Screen,Urine PRESUMPTIVE NEGATIVE; Opiate Screen,Urine PRESUMPTIVE NEGATIVE
[2020-07-09 01:57] VITALS: BP 111/69
== END 2020-07-09 02:05 | disposition other institution (70) ==
LOC: ED 14:06
DX: R41.82 Altered mental status, unspecified (principal); I10 Essential (primary) hypertension; F17.200 Nicotine dependence, unspecified, uncomplicated; Z90.49 Acquired absence of other specified parts of digestive tract; Z79.1 Long term (current) use of non-steroidal anti-inflammatories (NSAID); Z79.899 Other long term (current) drug therapy
CPT/HCPCS: 36415; 70450; 80053; 80307; 80320; 81001; 85025; G0480

== ENCOUNTER 2021-07-23 17:27 | Emergency (ER) | payer MEDICARE ==
--- NOTE | 2021-07-23 19:41 | Emergency Department Report ---
ED Psych HPI - General Chief Complaint: Medical Clearance Stated Complaint: SHOSHANA BAXTER Time Seen by Provider: 07/23/21 19:22 Source: patient Mode of arrival: Ambulatory - History of Present Illness Initial Comments: Patient is 36 years old female with history of schizophrenia. Patient brought to the emergency room by her sister for mental health evaluation. Patient stating that things are coming out from her eyes. Patient reported that she talk to demons. Patient denied any suicidal or homicidal ideation. Patient denied any auditory or visual hallucination. Unable to obtain further information from her as she is guarded. MD Complaint: suicidal ideation, feels depressed, altered mental status Associated Psychiatric Symptoms: depression, suicidal ideation, racing thoughts - Related Data Home Medications Medication Instructions Recorded Confirmed Last Taken Divalproex Dr [DepGrady CAZARES] 1,000 mg PO QID 01/11/20 01/11/20 Unknown Previous Rx's Medication Instructions Recorded Last Taken Type raNITIdine HCL [Ranitidine 150mg 150 mg PO Q12H #30 capsule 11/18/13 Unknown Rx Cap] Ibuprofen [Motrin] 800 mg PO Q8HR PRN #15 tablet 11/22/15 Unknown Rx Allergies Allergy/AdvReac Type Severity Reaction Status Date / Time No Known Allergies Allergy Verified 07/23/21 19:07 ED Review of Systems ROS: Stated complaint: SHOSHANA EVAL Other details as noted in HPI Comment: All other systems reviewed and negative Constitutional: denies: chills, fever Respiratory: denies: cough, shortness of breath, SOB with exertion Cardiovascular: denies: chest pain, palpitations Gastrointestinal: denies: abdominal pain, nausea, vomiting, diarrhea, constipation, hematemesis, melena Musculoskeletal: denies: back pain Neurological: denies: headache, weakness, numbness, paresthesias, confusion, abnormal gait Psychiatric: depression. denies: auditory hallucinations, visual hallucinatio ns, homicidal thoughts, suicidal thoughts ED Past Medical Hx - Past Medical History Previous Medical History?: No Hx Hypertension: Yes (PIH) Additional medical history: gallstone - Surgical History Past Surgical History?: No Hx Cholecystectomy: Yes - Social History Smoking Status: Current Every Day Smoker Substance Use Type: Alcohol, Marijuana - Medications Home Medications: Home Medications Medication Instructions Recorded Confirmed Last Taken Type raNITIdine HCL [Ranitidine 150mg 150 mg PO Q12H #30 capsule 11/18/13 01/11/20 Unknown Rx Cap] Ibuprofen [Motrin] 800 mg PO Q8HR PRN #15 tablet 11/22/15 01/11/[address] [DepaKOTE DR] 1,000 mg PO QID 01/11/20 01/11/20 Unknown History ED Physical Exam - General Limitations: No Limitations, Language Barrier General appearance: alert, in no apparent distress - Head Head exam: Present: atraumatic, normocephalic, normal inspection - Eye Eye exam: Present: normal appearance, PERRL - ENT ENT exam: Present: normal exam, normal orophraynx, mucous membranes moist - Neck Neck exam: Present: normal inspection, full ROM. Absent: tenderness, meningismus - Respiratory Respiratory exam: Present: normal lung sounds bilaterally - Cardiovascular Cardiovascular Exam: Present: regular rate, normal rhythm, normal heart sounds - GI/Abdominal GI/Abdominal exam: Present: soft, normal bowel sounds. Absent: distended, tenderness, guarding, rebound, rigid, organomegaly, mass, bruit, pulsatile mass, hernia - Extremities Exam Extremities exam: Present: normal inspection, full ROM, normal capillary refill. Absent: tenderness, pedal edema, joint swelling, calf tenderness - Back Exam Back exam: Present: normal inspection, full ROM. Absent: CVA tenderness (R), CVA tenderness (L) - Neurological Exam Neurological exam: Present: alert, oriented X3, CN II-XII intact, normal gait, reflexes normal. Absent: motor sensory deficit - Psychiatric Psychiatric exam: Present: anxious. Absent: homicidal ideation, suicidal ideation - Skin Skin exam: Present: warm, intact, normal color ED Course Vital Signs 07/23/21 07/23/21 07/24/21 18:55 20:04 01:59 Temperature 98.1 F 98.6 F 98.3 F Pulse Rate 100 H 83 77 Respiratory 18 18 16 Rate Blood Pressure 131/96 Blood Pressure 113/61 109/81 [Left] O2 Sat by Pulse 98 99 98 Oximetry 07/24/21 07/24/21 07/24/21 08:45 08:46 13:30 Temperature 98.2 F 98.4 F Pulse Rate 81 80 Respiratory 18 18 Rate Blood Pressure Blood Pressure 129/80 98/53 [Left] O2 Sat by Pulse 99 99 99 Oximetry ED Medical Decision Making - Lab Data Result diagrams: 07/23/21 19:44 07/23/21 19:44 Critical care attestation.: If time is entered above; I have spent that time in minutes in the direct care of this critically ill patient, excluding procedure time. ED Disposition Clinical Impression: Suicidal ideation Disposition: [address] [place] [address] Is pt being admited?: No Condition: Stable Referrals: PRIMARY CARE, [Primary Care Provider] - 3-5 Days
[2021-07-23 20:10] LABS: Basophils # (Auto) 0.1 K/mm3 (0.0-0.1); Basophils % (Auto) 0.7 % (0.0-1.8); Eosinophils # (Auto) 0.1 K/mm3 (0.0-0.4); Eosinophils % (Auto) 1.1 % (0.0-4.3); Hematocrit 43.4 % (30.3-42.9); Hemoglobin 14.6 gm/dl (10.1-14.3); Lymphocytes # (Auto) 2.6 K/mm3 (1.2-5.4); Lymphocytes % (Auto) 25.3 % (13.4-35.0); Mean Corpuscular HGB Conc 34 % (30-34); Mean Corpuscular Volume 94 fl (79-97); Monocytes # (Auto) 0.5 K/mm3 (0.0-0.8); Monocytes % (Auto) 5.4 % (0.0-7.3); Platelet Count 242 K/mm3 (140-440); Red Blood Count 4.62 M/mm3 (3.65-5.03); Red Cell Distribution Width 13.6 % (13.2-15.2)
[2021-07-23 20:18] LABS: Blood Urea Nitrogen 14 mg/dL (7-17); Calcium 9.6 mg/dL (8.4-10.2); Hemolysis Index 10
[2021-07-23 20:19] LABS: BUN/Creatinine Ratio 20
[2021-07-24 08:27] LABS: Amphetamine Screen,Urine Negative; Benzodiazepines Screen,Urine Negative; Cannabinoid Screen,Urine Negative; Cocaine Screen,Urine Negative; Methadone Screen,Urine Negative; Opiate Screen,Urine Negative
[2021-07-24 08:31] LABS: Bilirubin,Urine NEG (Negative); Blood,Urine LG (Negative); Color,Urine Yellow (Yellow); Mucus,Urine 3+ /HPF; Protein,Urine <15 mg/dL mg/dL (Negative)
--- NOTE | 2021-07-24 08:59 | Consultation ---
History of Present Illness - Reason for Consult Consult date: 07/24/21 Reason for consult: psychosis - History of Present Psychiatric Illness Per ER Note: Patient is 36 years old female with history of schizophrenia. Patient brought to the emergency room by her sister for mental health evaluation. Patient stating that things are coming out from her eyes. Patient reported that she talk to demons. Patient denied any suicidal or homicidal ideation. Patient denied any auditory or visual hallucination. Unable to obtain further information from her as she is guarded. Nba Whitt is a 36y/o female whom I evaluated today. The patient has a history of schizophrenia and states she was brought to the hospital by her sister. She then tells me the ambulance, because she "had to get a bracelet cut off." The patient is acutely psychotic. Her thoughts are disorganized, with flight of ideas, and she is difficult to follow due to her psychosis. She is talking about "the description of God and the body." She then says "my fingers have little cuts and they are collapsing." The patient tells me she's on "Risperidone 2mg." She says "it was the head, the fingers, and the toes." She denies SI/HI, but then shows me her fingers, and says "I don't think so." PAST PSYCHIATRIC HISTORY Unable to assess SOCIAL HISTORY Unable to assess REVIEW OF SYSTEMS Unable to assess MENTAL STATUS EXAMINATION General Appearance and Behavior: Age appropriate, dressed appropriately, guarded Cooperation: guarded Psychomotor Behavior: psychomotor normal Mood: Affect and affective range: Thought Process: illogical, disorganized, flight of ideas Thought Content: Speech: Normal volume, Regular rate and rhythm, Suicidal Ideation: Denies Homicidal Ideation: Denies Hallucinations: possibly Delusions: Yes Impulse Control: impaired Insight and Judgment: poor insight and judgment, Memory: Poor Attention: divided Orientation: Alert, oriented Assessment and Plan (1) Schizophrenia Treatment plan 1013 Risperidone 1mg po BID Trazodone 50mg po qhs Vistaril 50mgm po BID Risks, benefits and alternatives of medications discussed with the patient, questions answered and consent obtained from patient. PSYCHOTHERAPY: Supportive psychotherapy provided MEDICAL: Per primary team DELIRIUM PRECAUTIONS: Please re-orient patient frequently, keep lights on during the day, and minimize benzodiazepines and opiates as these medications could worsen patient's confusion. BUSINESS INTELLIGENCE MANAGER: Per medical team DISPOSITION: Recommend acute inpatient psychiatric hospitalization. FOLLOW-UP: Will Follow. Thank you for the consult. Please contact with any questions and/or concerns. Case staffed with Dr. Ontiveros Medications and Allergies Allergies Allergy/AdvReac Type Severity Reaction Status Date / Time No Known Allergies Allergy Verified 07/23/21 19:07 Home Medications Medication Instructions Recorded Confirmed Last Taken Type raNITIdine HCL [Ranitidine 150mg 150 mg PO Q12H #30 capsule 11/18/13 01/11/20 Unknown Rx Cap] Ibuprofen [Motrin] 800 mg PO Q8HR PRN #15 tablet 11/22/15 01/11/[address] [DepaKOTE DR] 1,000 mg PO QID 01/11/20 01/11/20 Unknown History Mental Status Exam - Vital signs Last Vital Signs Temp 98.2 F 07/24/21 08:45 Pulse 81 07/24/21 08:45 Resp 18 07/24/21 08:45 BP 129/80 07/24/21 08:45 Pulse Ox 99 07/24/21 08:46 Results Result Diagrams: 07/23/21 19:44 07/23/21 19:44 Abnormal lab results 07/23/21 07/23/21 07/23/21 Range/Units 19:44 19:44 19:44 Hgb 14.6 H (10.1-14.3) gm/dl Hct 43.4 H (30.3-42.9) % Sodium 135 L (137-145) mmol/L Salicylates < 0.3 L (2.8-20.0) mg/dL Acetaminophen (10.0-30.0) ug/mL 07/23/21 Range/Units 19:44 Hgb (10.1-14.3) gm/dl Hct (30.3-42.9) % Sodium (137-145) mmol/L Salicylates (2.8-20.0) mg/dL Acetaminophen 5.0 L (10.0-30.0) ug/mL All other labs normal.
[2021-07-24] MEDS ORDERED: risperiDONE 1 MG TAB PO SCH (10:00)
--- NOTE | 2021-07-24 10:33 | Emergency Department Report ---
Blank Doc - Documentation Documentation: Patient was resting this morning. She is not suicidal at this time. She still cannot carry on a cogent conversation. She has been medically cleared. She has been seen by psychiatric services. Patient has been placed at [facility]. We are awaiting transport.
[2021-07-24 13:31] VITALS: BP 98/53
[2021-07-24] MEDS ORDERED: traZODone 50 MG TAB PO SCH (22:00)
== END 2021-07-24 13:33 ==
LOC: ED 17:27
DX: R45.851 Suicidal ideations (principal); F32.9 Major depressive disorder, single episode, unspecified; Z20.822 Contact with and (suspected) exposure to COVID-19; I10 Essential (primary) hypertension; K85.10 Biliary acute pancreatitis without necrosis or infection; Z98.890 Other specified postprocedural states; F17.290 Nicotine dependence, other tobacco product, uncomplicated
CPT/HCPCS: 36415; 80048; 80307; 81001; 84703; 85025; 99285; Q0177; U0003; 80320; G0480

== ENCOUNTER 2021-10-03 19:34 | Emergency (ER) | payer MEDICARE ==
--- NOTE | 2021-10-03 20:08 | Emergency Department Report ---
ED Psych HPI - General Chief Complaint: Psych Stated Complaint: MH EVAL Time Seen by Provider: 10/03/21 19:58 Source: patient Mode of arrival: Ambulatory - History of Present Illness Initial Comments: CC: "need a board and care" HPI: This is a 36 yo female with hx of schizophrenia who presents to ED via EMS. She desired to return to [place] according to her report to EMS. She tells me that she desires a "board and care". She is mumbling at times. She has been taking medications. She denies hallucinations, suicidal or homicidal ideation. She has been staying with her sister. She denies medical complaints. Medications that she can recall include Vistaril, Risperdal, benztropine Complaint: other (Desires board & care desires transfer to [place]) -: unknown Associated Psychiatric Symptoms: racing thoughts Quality: constant Associated Symptoms: denies other symptoms Treatments Prior to Arrival: none - Related Data Home Medications Medication Instructions Recorded Confirmed Last Taken Divalproex Dr [DepGrady CAZAERS] 1,000 mg PO QID 01/11/20 01/11/20 Unknown Previous Rx's Medication Instructions Recorded Last Taken Type raNITIdine HCL [Ranitidine 150mg 150 mg PO Q12H #30 capsule 11/18/13 Unknown Rx Cap] Ibuprofen [Motrin] 800 mg PO Q8HR PRN #15 tablet 11/22/15 Unknown Rx Allergies Allergy/AdvReac Type Severity Reaction Status Date / Time No Known Allergies Allergy Unverified 10/03/21 19:52 ED Review of Systems ROS: Stated complaint: EVAL Other details as noted in HPI Comment: All other systems reviewed and negative Constitutional: denies: chills, fever, malaise Respiratory: denies: cough Cardiovascular: denies: chest pain Gastrointestinal: denies: abdominal pain, nausea, vomiting Skin: denies: rash, lesions Neurological: denies: headache, weakness Psychiatric: denies: auditory hallucinations, visual hallucinations, homicidal thoughts, suicidal thoughts ED Past Medical Hx - Past Medical History Previous Medical History?: Yes Hx Psychiatric Treatment: (depression, schizophrenia) - Social History Smoking Status: Former Smoker Substance Use Type: None - Medications Home Medications: Home Medications Medication Instructions Recorded Confirmed Last Taken Type raNITIdine HCL [Ranitidine 150mg 150 mg PO Q12H #30 capsule 11/18/13 01/11/20 Unknown Rx Cap] Ibuprofen [Motrin] 800 mg PO Q8HR PRN #15 tablet 11/22/15 01/11/[address] [DepaKOTE DR] 1,000 mg PO QID 01/11/20 01/11/20 Unknown History ED Physical Exam - General Limitations: No Limitations General appearance: alert, in no apparent distress - Head Head exam: Present: atraumatic, normocephalic - Eye Eye exam: Present: normal appearance - ENT ENT exam: Present: mucous membranes moist - Neck Neck exam: Present: normal inspection, full ROM - Respiratory Respiratory exam: Present: normal lung sounds bilaterally. Absent: respiratory distress, wheezes, rales, rhonchi - Cardiovascular Cardiovascular Exam: Present: regular rate, normal rhythm, normal heart sounds. Absent: systolic murmur, diastolic murmur, rubs, gallop - GI/Abdominal GI/Abdominal exam: Present: soft, normal bowel sounds. Absent: distended, tenderness, guarding, rebound - Extremities Exam Extremities exam: Present: normal inspection - Back Exam Back exam: Present: normal inspection - Neurological Exam Neurological exam: Present: alert, oriented X3 - Psychiatric Psychiatric exam: Present: flat affect - Skin Skin exam: Present: warm, dry, intact, normal color. Absent: rash ED Course Vital Signs 10/03/21 10/03/21 10/04/21 19:52 21:20 02:57 Temperature 98.1 F 97.4 F L 97.2 F L Pulse Rate 99 H 91 H 74 Respiratory 18 18 16 Rate Blood Pressure 115/78 122/62 104/58 [Left] O2 Sat by Pulse 97 97 95 Oximetry 10/04/21 14:24 Temperature 97.8 F Pulse Rate 82 Respiratory 20 Rate Blood Pressure 122/76 [Left] O2 Sat by Pulse 98 Oximetry ED Medical Decision Making - Lab Data Result diagrams: 10/03/21 20:22 10/03/21 20:22 - Medical Decision Making This is a 36-year-old female with history of schizophrenia who requests "board and care". She informed EMS that [facility]. She does have poor insight, tangential thought pattern. She has pressured circular speech. She is cooperative and directable. I have requested case management consultation and mental health evaluation. Patient is medically clear for psych care. Vital signs are stable. I have reviewed labs obtained CBC chemistry serum toxicology unremarkable. hCG negative. UDS negative. Urinalysis contaminated. No indication of UTI clinically Mental health bpm analyst recommended evaluation by psychiatry team in the morning as well as case management consultation. Involuntary hold not required at this time. Critical care attestation.: If time is entered above; I have spent that time in minutes in the direct care of this critically ill patient, excluding procedure time. ED Disposition Clinical Impression: Schizophrenia, Homelessness, Case management patient, Encounter for medical screening examination, Encounter for behavioral health screening Disposition: HOME / SELF CARE / HOMELESS Is pt being admited?: No Does the pt Need Aspirin: No Condition: Good Additional Instructions: Please continue current outpatient medications. Please follow-up with your outpatient homeless assisted resources that have been provided to the patient. Please follow-up with your outpatient medical doctor within the next month. Please follow-up with your outpatient psychiatrist within the next week. Please return to the emergency room right away with new pain, worsened pain, migration of pain, projectile vomiting, change in mental status, confusion, inability tolerate liquid feeds, homicidality, suicidality, or any new, worsened or different symptoms not present on the initial emergency room evaluation peer HOMELESS RESOURCES: [facility] NEED HELP? If you are in need of help or know someone who does, please contact us at [email or web address] call , or come to our offices at [address] [place] [address], Thursday-Thursday beginning 9:30 AM-1:30 PM -Support services help people with getting identification and legal documents -Homeless verification letter -Facesheet (if needed) [facility] Males only Admission at 7am Thu to Thu Address: [address] [place] [address] Client Engagement [phone] Regular program admission occurs Thursday through Thursday at 7:00 amand operates on a first come, first serve basis.Because we cant anticipate program availability in advance andprogram spots are in high demand, we recommend arr iving early. Space fills up fast! Next steps can include: Assignment to a [facility] program bed Connection to and placement in a partner program, or Referral to a partner agency [facility] Admission at 4:30pm daily Address: [address] , [place] [address] [facility] Admission from 8am to 10am Daily No intake until 11/05/20 Address: [address] [address] Professional and Agency Contacts To help [facility] (01/06) [place] Crisis Line: Suicide Prevention Line: Crisis Text Line: Text START to 948740 Emergency: 911 Outpatient COMMUNITY Behavioral Health Resources: [place]: [facility] [address] [place], [place] [address] [place]: [facility] [address] [place] [address] Thursday thru Thursday - 8am - 5pm Call to schedule an assessment for mental health and substance abuse programs [place]: [facility] Address: [address] [place], [place] [address]Thursday thru Thursday- 7am-2pm [facility] Address: [address] [place], [place] [address]Thursday thru Thursday: 8:30AM-5PM Referrals: [facility] [Outside] - 3-5 Days [facility] [Outside] - 3-5 Days
[2021-10-03 20:39] LABS: Basophils # (Auto) 0.1 K/mm3 (0.0-0.1); Basophils % (Auto) 0.8 % (0.0-1.8); Eosinophils # (Auto) 0.1 K/mm3 (0.0-0.4); Eosinophils % (Auto) 1.2 % (0.0-4.3); Hemoglobin 13.9 gm/dl (10.1-14.3); Lymphocytes # (Auto) 2.2 K/mm3 (1.2-5.4); Lymphocytes % (Auto) 31.8 % (13.4-35.0); Mean Corpuscular HGB Conc 32 % (30-34); Mean Corpuscular Volume 93 fl (79-97); Monocytes # (Auto) 0.5 K/mm3 (0.0-0.8); Platelet Count 191 K/mm3 (140-440); Red Blood Count 4.62 M/mm3 (3.65-5.03); Red Cell Distribution Width 14.1 % (13.2-15.2)
[2021-10-03 22:06] LABS: Bacteria,Urine 1+ /HPF (Negative); Bilirubin,Urine NEG (Negative); Blood,Urine NEG (Negative); Color,Urine Yellow (Yellow); Mucus,Urine 3+ /HPF
[2021-10-03 22:11] LABS: Amphetamine Screen,Urine Negative; Benzodiazepines Screen,Urine Negative; Cannabinoid Screen,Urine Negative; Cocaine Screen,Urine Negative; Methadone Screen,Urine Negative; Opiate Screen,Urine Negative
--- NOTE | 2021-10-04 11:49 | Consultation ---
History of Present Illness - Reason for Consult Consult date: 10/04/21 Reason for consult: mental health evaluation - History of Present Psychiatric Illness ED Note: This is a 36 yo female with hx of schizophrenia who presents to ED via EMS. She desired to return to [place] according to her report to EMS. She tells me that she desires a "board and care". She is mumbling at times. She has been taking medications. She denies hallucinations, suicidal or homicidal ideation. She has been staying with her sister. She denies medical complaints. Nba Whitt is a 36 year old female with history of schizophrenia. In my interview with the patient, she is calm and oriented to self. The patient reports that " I came because I don't have a place to live." She denies any current suicidal/homicidal ideation and denies hallucinations. PAST PSYCHIATRIC HISTORY Diagnoses: Schizophrenia Suicide attempts or Self-harm behavior: Denies Prior psychiatric hospitalizations:Yes Substance Abuse history: Denies Previous psychiatric medications tried: unable to recall Outpatient treatment: unknown SOCIAL HISTORY Marital Status: Single Living Arrangements: Homeless Employment Status:unemployed Access to guns/weapons: Denied Education: 12th grade History of Abuse: Unknown Legal History: None reported REVIEW OF SYSTEMS Constitutional: Negative for weight loss ENT: Negative for stridor Respiratory: Negative for cough or hemoptysis All other systems reviewed and are negative MENTAL STATUS EXAMINATION General Appearance and Behavior: Age appropriate, dressed appropriately, calm and uncooperative Cooperation: cooperative Psychomotor Behavior: psychomotor normal Mood:"ok" Affect and affective range: congruent with stated mood Thought Process: goal oriented Thought Content:Not suicidal Speech: Normal volume, Regular rate and rhythm, Intellectual Functioning: Average Suicidal Ideation:Denies Homicidal Ideation: Denies Hallucinations: Denies Delusions: None elicited Impulse Control: Unimpaired Insight and Judgment: limited insight and fair judgment, Memory: Normal Attention: divided Orientation: Alert, oriented Assessment and Plan (1) Schizophrenia (2) Treatment plan Discontinue 1013 Case management Continue previous prescribed meds Risks, benefits and alternatives of medications discussed with the patient, questions answered and consent obtained from patient. PSYCHOTHERAPY: Supportive psychotherapy provided MEDICAL: Per primary team DELIRIUM PRECAUTIONS: Please re-orient patient frequently, keep lights on during the day, and minimize benzodiazepines and opiates as these medications could worsen patient's confusion. ACETYLENE TORCH BURNER: Per medical team DISPOSITION: Recommend acute inpatient psychiatric hospitalization. Will follow. Thank you for the consult. Please contact with any questions and/or concerns. Case staffed with Dr. Ontiveros Medications and Allergies Allergies Allergy/AdvReac Type Severity Reaction Status Date / Time No Known Allergies Allergy Unverified 10/03/21 19:52 Home Medications Medication Instructions Recorded Confirmed Last Taken Type raNITIdine HCL [Ranitidine 150mg 150 mg PO Q12H #30 capsule 11/18/13 01/11/20 Unknown Rx Cap] Ibuprofen [Motrin] 800 mg PO Q8HR PRN #15 tablet 11/22/15 01/11/[address] [DepaKOTE DR] 1,000 mg PO QID 01/11/20 01/11/20 Unknown History Mental Status Exam - Vital signs Last Vital Signs Temp 97.2 F L 10/04/21 02:57 Pulse 74 10/04/21 02:57 Resp 16 10/04/21 02:57 BP 104/58 10/04/21 02:57 Pulse Ox 95 10/04/21 02:57 Results Result Diagrams: 10/03/21 20:22 10/03/21 20:22 Abnormal lab results 10/03/21 10/03/21 10/03/21 Range/Units 20:22 20:22 20:22 Hct 43.0 H (30.3-42.9) % Gosper % (Auto) 8.0 H (0.0-7.3) % Glucose 110 H (65-100) mg/dL Salicylates < 0.3 L (2.8-20.0) mg/dL Acetaminophen (10.0-30.0) ug/mL 10/03/21 Range/Units 20:22 Hct (30.3-42.9) % Gosper % (Auto) (0.0-7.3) % Glucose (65-100) mg/dL Salicylates (2.8-20.0) mg/dL Acetaminophen 5.0 L (10.0-30.0) ug/mL All other labs normal.
--- NOTE | 2021-10-04 11:59 | Event Note ---
Date: 10/04/21 The patient was evaluated in the emergency department for symptoms described in the history of present illness. He/she was evaluated in the context of the global COVID-19 pandemic, which necessitated consideration that the patient might be at risk for infection with the virus that causes COVID-19. Institutional protocols and algorithms that pertain to the evaluation of patients at risk for COVID-19 are in a state of rapid change based on information released by regulatory bodies including the CDC and federal and state organizations. These policies and algorithms were followed during the patient's care in the emergency department. Please note that these policies, procedures and recommendations changed on a rapid basis. Laboratory studies, vital signs, nursing documentation, ER documentation, and psychiatric documentation are reviewed and appreciated. Nursing team reports no acute events this morning or concerns. The patient is awake and ambulating and does not appear to be in any acute distress. Patient ate breakfast and went to the bathroom without difficulty. In addition, as per review of prehospital documentation, the patient called 911 because she wanted a ride. Case management consultation was requested to assist with outpatient placement. Case management evaluation is pending. However, the patient was deemed medically suitable for discharge during her initial ER evaluation, and the psychiatric team have recommended discharge from a psychiatric perspective, I do not recommend 1013 hold or involuntary hold. The patient will be placed on discharge status, and we will await case management evaluation for outpatient placement. In addition, this patient will be provided with a list of outpatient homeless detention resources. Vital Signs 10/03/21 10/03/21 10/04/21 19:52 21:20 02:57 Temperature 98.1 F 97.4 F L 97.2 F L Pulse Rate 99 H 91 H 74 Respiratory 18 18 16 Rate Blood Pressure 115/78 122/62 104/58 [Left] O2 Sat by Pulse 97 97 95 Oximetry Lab Results 10/03/21 10/03/21 10/03/21 Range/Units 20:22 20:22 20:22 WBC 6.8 (4.5-11.0) K/mm3 RBC 4.62 (3.65-5.03) M/mm3 Hgb 13.9 (10.1-14.3) gm/dl Hct 43.0 H (30.3-42.9) % MCV 93 (79-97) fl MCH 30 (28-32) pg MCHC 32 (30-34) % RDW 14.1 (13.2-15.2) % Plt Count 191 (140-440) K/mm3 Lymph % (Auto) 31.8 (13.4-35.0) % [place]rack[place] % (Auto) 8.0 H (0.0-7.3) % Eos % (Auto) 1.2 (0.0-4.3) % Baso % (Auto) 0.8 (0.0-1.8) % Lymph # (Auto) 2.2 (1.2-5.4) K/mm3 M[place]racken # (Auto) 0.5 (0.0-0.8) K/mm3 Eos # (Auto) 0.1 (0.0-0.4) K/mm3 Baso # (Auto) 0.1 (0.0-0.1) K/mm3 Seg Neutrophils % 58.2 (40.0-70.0) % Seg Neutrophils # 3.9 (1.8-7.7) K/mm3 Sodium 138 (137-145) mmol/L Potassium 4.4 (3.6-5.0) mmol/L Chloride 103.0 (98-107) mmol/L Carbon Dioxide 24 (22-30) mmol/L Anion Gap 15 mmol/L BUN 10 (7-17) mg/dL Creatinine 1.1 (0.6-1.2) mg/dL Estimated GFR 56 ml/min BUN/Creatinine Ratio 9 % Glucose 110 H (65-100) mg/dL Calcium 9.0 (8.4-10.2) mg/dL Total Bilirubin 0.20 (0.1-1.2) mg/dL AST 14 (5-40) units/L ALT 14 (7-56) units/L Alkaline Phosphatase 62 (35-129) units/L Total Protein 7.0 (6.3-8.2) g/dL Albumin 4.0 (3.9-5) g/dL Albumin/Globulin Ratio 1.3 % HCG, Qual (Negative) Urine Color (Yellow) Urine Turbidity (Clear) Urine pH (5.0-7.0) Ur Specific [place] (1.003-1.030) Urine Protein (Negative) mg/dL Urine Glucose (UA) (Negative) mg/dL Urine Ketones (Negative) mg/dL Urine Blood (Negative) Urine Nitrite (Negative) Urine Bilirubin (Negative) Urine Urobilinogen (<2.0) mg/dL Ur Leukocyte Esterase (Negative) Urine WBC (Auto) (0.0-6.0) /HPF Urine RBC (Auto) (0.0-6.0) /HPF U Epithel Cells (Auto) (0-13.0) /HPF Urine Bacteria (Auto) (Negative) /HPF Urine Mucus /HPF Salicylates < 0.3 L (2.8-20.0) mg/dL Urine Opiates Screen Urine Methadone Screen Acetaminophen (10.0-30.0) ug/mL Ur Barbiturates Screen Ur Phencyclidine Scrn Ur Amphetamines Screen U Benzodiazepines Scrn Urine Cocaine Screen U Marijuana (THC) Screen Drugs of Abuse Note Plasma/Serum Alcohol (0-0.07) % 10/03/21 10/03/21 10/03/21 Range/Units 20:22 20:22 20:22 WBC (4.5-11.0) K/mm3 RBC (3.65-5.03) M/mm3 Hgb (10.1-14.3) gm/dl Hct (30.3-42.9) % MCV (79-97) fl MCH (28-32) pg MCHC (30-34) % RDW (13.2-15.2) % Plt Count (140-440) K/mm3 Lymph % (Auto) (13.4-35.0) % Mccracken % (Auto) (0.0-7.3) % Eos % (Auto) (0.0-4.3) % Baso % (Auto) (0.0-1.8) % Lymph # (Auto) (1.2-5.4) K/mm3 M[place]racken # (Auto) (0.0-0.8) K/mm3 Eos # (Auto) (0.0-0.4) K/mm3 Baso # (Auto) (0.0-0.1) K/mm3 Seg Neutrophils % (40.0-70.0) % Seg Neutrophils # (1.8-7.7) K/mm3 Sodium (137-145) mmol/L Potassium (3.6-5.0) mmol/L Chloride (98-107) mmol/L Carbon Dioxide (22-30) mmol/L Anion Gap mmol/L BUN (7-17) mg/dL Creatinine (0.6-1.2) mg/dL Estimated GFR ml/min BUN/Creatinine Ratio % Glucose (65-100) mg/dL Calcium (8.4-10.2) mg/dL Total Bilirubin (0.1-1.2) mg/dL AST (5-40) units/L ALT (7-56) units/L Alkaline Phosphatase (35-129) units/L Total Protein (6.3-8.2) g/dL Albumin (3.9-5) g/dL Albumin/Globulin Ratio % HCG, Qual Negative (Negative) Urine Color (Yellow) Urine Turbidity (Clear) Urine pH (5.0-7.0) Ur Specific [place] (1.003-1.030) Urine Protein (Negative) mg/dL Urine Glucose (UA) (Negative) mg/dL Urine Ketones (Negative) mg/dL Urine Blood (Negative) Urine Nitrite (Negative) Urine Bilirubin (Negative) Urine Urobilinogen (<2.0) mg/dL Ur Leukocyte Esterase (Negative) Urine WBC (Auto) (0.0-6.0) /HPF Urine RBC (Auto) (0.0-6.0) /HPF U Epithel Cells (Auto) (0-13.0) /HPF Urine Bacteria (Auto) (Negative) /HPF Urine Mucus /HPF Salicylates (2.8-20.0) mg/dL Urine Opiates Screen Urine Methadone Screen Acetaminophen 5.0 L (10.0-30.0) ug/mL Ur Barbiturates Screen Ur Phencyclidine Scrn Ur Amphetamines Screen U Benzodiazepines Scrn Urine Cocaine Screen U Marijuana (THC) Screen Drugs of Abuse Note Plasma/Serum Alcohol < 0.01 (0-0.07) % 10/03/21 10/03/21 Range/Units 21:52 21:52 WBC (4.5-11.0) K/mm3 RBC (3.65-5.03) M/mm3 Hgb (10.1-14.3) gm/dl Hct (30.3-42.9) % MCV (79-97) fl MCH (28-32) pg MCHC (30-34) % RDW (13.2-15.2) % Plt Count (140-440) K/mm3 Lymph % (Auto) (13.4-35.0) % M[place]racken % (Auto) (0.0-7.3) % Eos % (Auto) (0.0-4.3) % Baso % (Auto) (0.0-1.8) % Lymph # (Auto) (1.2-5.4) K/mm3 [place]rack[place] # (Auto) (0.0-0.8) K/mm3 Eos # (Auto) (0.0-0.4) K/mm3 Baso # (Auto) (0.0-0.1) K/mm3 Seg Neutrophils % (40.0-70.0) % Seg Neutrophils # (1.8-7.7) K/mm3 Sodium (137-145) mmol/L Potassium (3.6-5.0) mmol/L Chloride (98-107) mmol/L Carbon Dioxide (22-30) mmol/L Anion Gap mmol/L BUN (7-17) mg/dL Creatinine (0.6-1.2) mg/dL Estimated GFR ml/min BUN/Creatinine Ratio % Glucose (65-100) mg/dL Calcium (8.4-10.2) mg/dL Total Bilirubin (0.1-1.2) mg/dL AST (5-40) units/L ALT (7-56) units/L Alkaline Phosphatase (35-129) units/L Total Protein (6.3-8.2) g/dL Albumin (3.9-5) g/dL Albumin/Globulin Ratio % HCG, Qual (Negative) Urine Color Yellow (Yellow) Urine Turbidity Clear (Clear) Urine pH 6.0 (5.0-7.0) Ur Specific [place] 1.025 (1.003-1.030) Urine Protein 30 mg/dl (Negative) mg/dL Urine Glucose (UA) Neg (Negative) mg/dL Urine Ketones Tr (Negative) mg/dL Urine Blood Neg (Negative) Urine Nitrite Neg (Negative) Urine Bilirubin Neg (Negative) Urine Urobilinogen 4.0 (<2.0) mg/dL Ur Leukocyte Esterase Sm (Negative) Urine WBC (Auto) 5.0 (0.0-6.0) /HPF Urine RBC (Auto) 3.0 (0.0-6.0) /HPF U Epithel Cells (Auto) 4.0 (0-13.0) /HPF Urine Bacteria (Auto) 1+ (Negative) /HPF Urine Mucus 3+ /HPF Salicylates (2.8-20.0) mg/dL Urine Opiates Screen Negative Urine Methadone Screen Negative Acetaminophen (10.0-30.0) ug/mL Ur Barbiturates Screen Negative Ur Phencyclidine Scrn Negative Ur Amphetamines Screen Negative U Benzodiazepines Scrn Negative Urine Cocaine Screen Negative U Marijuana (THC) Screen Negative Drugs of Abuse Note Disclamer Plasma/Serum Alcohol (0-0.07) %
[2021-10-04] MEDS ORDERED: DIVALPROEX DR 500 MG TAB PO SCH (14:00)
[2021-10-04 14:27] VITALS: BP 122/76
== END 2021-10-04 14:24 | disposition home or self-care (01) ==
LOC: EDUNIT# → ED 19:34
DX: Z04.6 Encounter for general psychiatric examination, requested by authority (principal); F20.9 Schizophrenia, unspecified; F32.9 Major depressive disorder, single episode, unspecified; Z59.00 Homelessness unspecified; Z87.891 Personal history of nicotine dependence; Z79.899 Other long term (current) drug therapy
CPT/HCPCS: 36415; 80053; 80307; 80320; 81001; 84703; 85025; 99284; G0480